=== PATIENT | male | born 1940 | race Caucasian/White ===

== ENCOUNTER 2016-10-31 11:56 | Inpatient (IN) | payer MEDICARE, OTHER ==
[~2016-10-31] VITALS: Ht 180.3 cm; Wt 91.5 kg
[2016-10-31] VITALS (8 sets, daily range): BP systolic 146–212; BP diastolic 67–100; PULSE 60–78; RESP 16–28; TEMP 98–98.2; O2SAT 95–98
[~2016-10-31 11:56] MED LIST: CYCL5TAB PO; NAPR500 PO; PHEN30TA32
[2016-10-31] MEDS ORDERED: PHENO60 PO (12:23)
--- NOTE | 2016-10-31 12:33 | PD ---
HPI Chief Complaint: Fall Time Seen by Provider: 12:28 Travel History International Travel<30 days: No Contact w/Intl Traveler<30days: No Traveled to known affect area: No History of Present Illness HPI This is a 75-year-old male who presents the emergency department having had a mechanical fall in a gas station 4 days ago hitting his head and face and injuring his left wrist. Patient reports persistent moderate severity pain in his left face, constant, worse with opening his jaw, associated with a significant amount of bruising around his left eye and his left lip. Patient also sustained an injury to his left wrist and has moderate severity pain, worse with trying to close troponin bottles, constant. He says he tried to ice it for several days but it wasn't getting any better so he came to the emergency room. He is not on any blood thinners. PFSH Past Medical History Seizures: Yes Tetanus Vaccination: Unknown Influenza Vaccination: No Social History Alcohol Use: No Tobacco Use: No Substance Use: No Allergies-Medications (Allergen,Severity, Reaction): Coded Allergies: No Known Allergies (Unverified , 10/31/16) Reported Meds & Prescriptions Reported Meds & Active Scripts Active Reported Phenobarbital 64.8 Mg Tab 64.8 Mg PO DAILY Review of Systems Except as stated in HPI: all other systems reviewed are Neg Physical Exam Narrative GENERAL:Well appearing, no acute distress SKIN: Old-appearing ecchymoses in the infraorbital region involving the left eye and around the left lower lip with some bruising on the left distal forearm HEAD: Atraumatic. Normocephalic. EYES: Pupils equal and round. No injection or drainage. ENT: Moist mucous membranes NECK: Trachea midline. CARDIOVASCULAR: Regular rate and rhythm. No murmur appreciated. Plus left radial pulse with normal capillary refill. RESPIRATORY: Clear to auscultation. Breath sounds equal bilaterally. GASTROINTESTINAL: Abdomen soft, non-tender, nondistended. MUSCULOSKELETAL: Tender to palpation along the ulnar aspect of the left distal forearm at the wrist, some pain with flexion and extension of the left wrist. NEUROLOGICAL: Awake and alert. No obvious cranial nerve deficits. Motor and sensation intact in the median, ulnar and radial distributions of the left hand. PSYCHIATRIC: Appropriate mood and affect; insight and judgment normal. Data Data Last Documented VS Vital Signs Date Time Temp Pulse Resp B/P Pulse Ox O2 Delivery O2 Flow Rate FiO2 10/31/16 15:36 61 18 212/98 96 Room Air 10/31/16 12:[address] Brain W/O Iv Contrast(Rout) (10/31/16 ) Ct Facial Bones W/O Iv Cont (10/31/16 ) Wrist, Complete ([id number]) (10/31/16 ) Mri Brain W&W/O Contrast (10/31/16 ) Complete Blood Count With Diff (10/31/16 13:48) Basic Metabolic Panel (Bmp) (10/31/16 13:48) Fiberglass Long Leg Cast Adult (10/31/16 ) Nicardipine Inj (Cardene Inj) (10/31/16 16:45) Admit Order (Ed Use Only) (10/31/16 17:13) Consult Neurosurgery (10/31/16 ) Labs Laboratory Tests Test 10/31/16 14:03 White Blood Count 7.8 TH/MM3 Red Blood Count 4.38 MIL/MM3 Hemoglobin 13.9 GM/DL Hematocrit 41.3 % Mean Corpuscular Volume 94.2 FL Mean Corpuscular Hemoglobin 31.7 PG Mean Corpuscular Hemoglobin 33.6 % Concent Red Cell Distribution Width 13.8 % Platelet Count 187 TH/MM3 Mean Platelet Volume 9.0 FL Neutrophils (%) (Auto) 54.4 % Lymphocytes (%) (Auto) 32.4 % Monocytes (%) (Auto) 8.6 % Eosinophils (%) (Auto) 4.3 % Basophils (%) (Auto) 0.3 % Neutrophils # (Auto) 4.3 TH/MM3 Lymphocytes # (Auto) 2.5 TH/MM3 Monocytes # (Auto) 0.7 TH/MM3 Eosinophils # (Auto) 0.3 TH/MM3 Basophils # (Auto) 0.0 TH/MM3 CBC Comment DIFF FINAL Differential Comment Sodium Level 142 MEQ/L Potassium Level 3.5 MEQ/L Chloride Level 105 MEQ/L Carbon Dioxide Level 27.6 MEQ/L Anion Gap 9 MEQ/L Blood Urea Nitrogen 10 MG/DL Creatinine 0.92 MG/DL Estimat Glomerular Filtration 80 ML/MIN Rate Random Glucose 106 MG/DL Calcium Level 8.7 MG/DL MDM Medical Decision Making Medical Screen Exam Complete: Yes Emergency Medical Condition: Yes Interpretation(s) Afebrile, no tachycardia, hypertensive No leukocytosis Electrolytes are reassuring CT of the head: Hyperdense lesion along the right temporal extra-axial space 3 x 1 cm MRI: Small mass that could be an epidural collection of blood or atypical meningioma Differential Diagnosis Subarachnoid hemorrhage, subdural hematoma, epidural hematoma, orbital floor fracture, wrist fracture Narrative Course This is a 75-year-old male who presents to the emergency department having had a closed head injury 4 days ago. He was placed on a monitor and an IV was established. CTs were obtained which demonstrate a 3 x 1 cm extra-axial collection, unclear meningioma versus blood. An MRI was obtained which is not definitive but does appear to involve hemorrhage. Dr. Loyola recommended transfer to ICU and neurosurgery involvement in the case that this is a contained epidural hematoma. Patient was quite hypertensive. He was started on nicardipine with a systolic blood pressure of 160. Otherwise CT of his face and x-ray the wrist was reassuring. Physician Communication Physician Communication Discussed with Dr. Toledo and Dr. Santoyo Diagnosis Primary Impression: Intracranial hemorrhage Admitting Information Admitting Physician Requests: Admit Amber Hickey MD Oct 31, 2016 12:33
--- NOTE | 2016-10-31 13:02 | RADHPO ---
EXAM DATE/TIME: 10/31/2016 12:36 [facility] COMPARISON: No previous studies available for comparison. INDICATIONS : Fall, left wrist pain and bruising. MEDICAL HISTORY : None. SURGICAL HISTORY : None. ENCOUNTER: Initial ACUITY: 1 week PAIN SCORE: 5/10 LOCATION: Left lateral wrist FINDINGS: There is soft tissue swelling on the medial side of the wrist. Bone density is normal. Alignment is anatomic. Fracture is not appreciated. CONCLUSION: Soft tissue without fracture. Francisco Loyola MD FACR on October 31, 2016 at 12:58 Board Certified Radiologist. This report was verified electronically.
--- NOTE | 2016-10-31 13:40 | RADHPO ---
EXAM DATE/TIME: 10/31/2016 13:07 [facility] COMPARISON: No previous studies available for comparison. INDICATIONS : Tripped and fell on face. RADIATION DOSE: 54.38 CTDIvol (mGy) MEDICAL HISTORY : Seizures. SURGICAL HISTORY : Orthopedic surgery. ENCOUNTER: Initial ACUITY: 4 - 6 days PAIN SCALE: 3/10 LOCATION: cranial TECHNIQUE: Multiple contiguous axial images were obtained of the head. Using automated exposure control and adj ustment of the mA and/or kV according to patient size, radiation dose was kept as low as reasonably a chievable to obtain optimal diagnostic quality images. FINDINGS: CEREBRUM: A 2.9 x 1.1 cm hyperdense mass is seen within the extra-axial space right temporal lobe likely mening ioma versus less likely extra-axial hemorrhage. The ventricles are normal for age. No evidence of mi dline shift, mass lesion or acute infarction. POSTERIOR FOSSA: The cerebellum and brainstem are intact. The 4th ventricle is midline. The cerebellopontine angle i s unremarkable. EXTRACRANIAL: The visualized portion of the orbits is intact. SKULL: The calvaria is intact. No evidence of skull fracture. CONCLUSION: 1. Hyperdense lesion along the right temporal extra-axial space measuring 2.9 x 1.1 cm, could be meni ngioma versus less likely extra-axial hemorrhage. Contrasted MRI recommended for confirmation. 2. Otherwise unremarkable CT brain. Josue Crews MD on October 31, 2016 at 13:26 Board Certified Radiologist. This report was verified electronically.
--- NOTE | 2016-10-31 13:42 | RADHPO ---
EXAM DATE/TIME: 10/31/2016 13:07 [facility] COMPARISON: No previous studies available for comparison. INDICATIONS : Tripped and fell on face. Left sided facial pain. RADIATION DOSE: 34.93 CTDIvol (mGy) MEDICAL HISTORY : Seizures. SURGICAL HISTORY : Orthopedic surgery. ENCOUNTER: Initial ACUITY: 4 - 6 days PAIN SCORE: 3/10 LOCATION: Left facial TECHNIQUE: Volumetric scanning of the facial bones was performed. Using automated exposure control and adjustme nt of the mA and/or kV according to patient size, radiation dose was kept as low as reasonably achiev able to obtain optimal diagnostic quality images. FINDINGS: ORBITS: The orbital and infraorbital osseous structures are intact. The retroconal structures have a normal configuration. No radiopaque foreign bodies are seen. NASAL BONE: The nasal bone and maxillary spine are intact ZYGOMATIC ARCHES: Symmetric without evidence of fracture. SINUSES: The maxillary, ethmoid and frontal sinuses are intact. No air-fluid levels seen. NASAL CAVITY: The nasal septum is intact and midline. The lacrimal ducts are intact. SOFT TISSUES: No radiopaque foreign bodies seen. Left facial soft-tissue swelling is seen. INTRACRANIAL: No intracranial air seen. CRIBIFORM PLATE: Grossly intact. CONCLUSION: 1. No facial fractures. 2. Right sided extra axial hyperdense lesion likely meningioma. 3. Left sided facial soft tissue swelling. Josue Crews MD on October 31, 2016 at 13:39 Board Certified Radiologist. This report was verified electronically.
[2016-10-31] MEDS ORDERED: GADODIAMIDE PF 287 MG/ML 20 ML VIAL (for RAD MRI) IV ONE (14:00)
[2016-10-31 14:19] LABS: AUTOMATED NEUTROPHIL # 4.3 TH/MM3 (1.8-7.7); BASOPHIL % 0.3 % (0.0-2.0); EOSINOPHIL # 0.3 TH/MM3 (0-0.4); EOSINOPHIL % 4.3 % (0.0-4.0); HEMATOCRIT 41.3 % (39.0-51.0); HEMO FLAGS DIFF FINAL; LYMPH % 32.4 % (9.0-44.0); LYMPHOCYTE # 2.5 TH/MM3 (1.0-4.8); MEAN CELL VOLUME 94.2 FL (80.0-100.0); MEAN CORPUSCULAR HEMOGLOBIN 31.7 PG (27.0-34.0); MEAN CORPUSCULAR HGB CONC 33.6 % (32.0-36.0); MONO % 8.6 % (0.0-8.0); NEUT % 54.4 % (16.0-70.0); PLATELET COUNT 187 TH/MM3 (150-450); RED BLOOD COUNT 4.38 MIL/MM3 (4.50-5.90); RED CELL DISTRIBUTION WIDTH 13.8 % (11.6-17.2); WHITE BLOOD COUNT 7.8 TH/MM3 (4.0-11.0)
[2016-10-31 14:26] LABS: POTASSIUM 3.5 MEQ/L (3.5-5.1)
[2016-10-31 14:29] LABS: BICARBONATE 27.6 MEQ/L (21.0-32.0)
--- NOTE | 2016-10-31 16:33 | RADHPO ---
EXAM DATE/TIME: 10/31/2016 15:24 [facility] COMPARISON: CT FACIAL BONES W/O CONTRAST, October 31, 2016, 13:07. CT BRAIN W/O CONTRAS T, October 31, 2016, 13:07. INDICATIONS : Mass. Patient fell and hit head. CONTRAST: 18 cc Omniscan (gadodiamide) IV MEDICAL HISTORY : None. SURGICAL HISTORY : Total knee replacement, left. ENCOUNTER: Subsequent ACUITY: 4-6 days PAIN SCORE: 3/10 LOCATION: Cranial TECHNIQUE: Multiplanar, multisequence MRI of the brain was performed both prior to and following the administration of paramagnetic contrast. FINDINGS: There is a small extraaxial mass of mixed intensity measuring 1.2 cm x 2.8 cm. This do es show minimal inhomogeneous enhancement. This has the appearance of blood products on the gradient echo acquisitions and does show minimal dural enhancement. There is probably a small epidural colle ction of blood on the opposite side of the trauma. This could be an atypical meningioma that has hem orrhaged. Ventricular size is appropriate. The left hemisphere is unremarkable. Orbits and paranasal sinuses appear normal. Posterior fossa is unremarkable. CONCLUSION: 1. Small mass as described above on the right that could be an epidural collection of blood or atypic al meningioma. 2. Findings have been discussed with Dr. Hickey on today's date. Francisco Loyola MD FACR on October 31, 2016 at 15:59 Board Certified Radiologist. This report was verified electronically.
[2016-10-31] MEDS ORDERED: niCARdipine INJ 25 MG in SODIUM CHLOR 0.9% 250 ML INJ 250 ML IV ONE (16:45)
[2016-10-31] MEDS ORDERED: SODIUM CHLOR 0.9% 1000 ML INJ 1,000 ML IV SCH (17:24)
[2016-10-31] MEDS ORDERED: MAGNESIUM OXIDE 400 MG TAB PO PRN (17:30)
[2016-10-31] MEDS ORDERED: SODIUM PHOSPHATE INJ 30 MMOL in SODIUM CHLOR 0.9% 250 ML INJ 240 ML IV PRN (17:30)
[2016-10-31] MEDS ORDERED: POTASSIUM PHOSPHATE MONOBASIC 500 MG TAB PO PRN (17:30)
[2016-10-31] MEDS ORDERED: ONDANSETRON HCL 4 MG/2 ML VIAL IV PRN (17:30)
[2016-10-31] MEDS ORDERED: POTASSIUM PHOSPHATE MONOBASIC 500 MG TAB PO/TUBE PRN (17:30)
[2016-10-31] MEDS ORDERED: DEXTROSE 50% IN WATER 50 ML VIAL(D50) IV PUSH PRN (17:30)
[2016-10-31] MEDS ORDERED: RESP: ALBUTEROL 2.5 MG/IPRATROPIUM 0.5 MG NEB (PRN) INH (17:30)
[2016-10-31] MEDS ORDERED: POTASSIUM CL 40 MEQ/30 ML LIQ UDC PO/TUBE PRN ×2 (17:30)
[2016-10-31] MEDS ORDERED: MAGNESIUM SULFATE INJ 2 GM in SODIUM CHLORIDE 0.9% INJ 96 ML IV PRN (17:30)
[2016-10-31] MEDS ORDERED: POTASSIUM CHLOR 20 MEQ PREMIX 100 ML IV PRN ×2 (17:30)
[2016-10-31] MEDS ORDERED: MISCELLANEOUS NURSING INFORMATION XX SCH (17:30)
[2016-10-31] MEDS ORDERED: CHLORHEXIDINE GLUCONATE 2 % 1 PACK (2 CLOTHS) TOP PRN (17:30)
[2016-10-31] MEDS ORDERED: POTASSIUM PHOSPHATE INJ 30 MMOL in SODIUM CHLOR 0.9% 250 ML INJ 250 ML IV PRN (17:30)
[2016-10-31] MEDS ORDERED: MAGNESIUM SULFATE INJ 4 GM in SODIUM CHLORIDE 0.9% INJ 92 ML IV PRN (17:30)
[2016-10-31] MEDS ORDERED: POTASSIUM CHLOR 40 MEQ PREMIX 100 ML IV PRN ×2 (17:30)
[2016-10-31] MEDS ORDERED: SODIUM CHLORIDE 0.9% FLUSH 5 ML FLUSH IV FLUSH PRN (17:30)
[2016-10-31] MEDS: INSULIN NovoLIN REGULAR SUPPLEMENTAL SCALE SQ SCH (17:51)
[2016-10-31 18:27] LABS: APTT (PATIENT) 26.9 SEC (24.3-30.1); PROTHROMBIN TIME - PATIENT 10.8 SEC (9.8-11.6)
[2016-10-31] MEDS: SODIUM CHLORIDE 0.9% FLUSH 5 ML FLUSH IV FLUSH SCH (21:00)
[2016-10-31] MEDS: niCARdipine 25 MG/NS 250 ML Vial2Bag or IV room IV SCH ×2 (22:43)
--- NOTE | 2016-10-31 22:55 | HHI.HP ---
[facility] Service Critical Care Medicine Primary Care Physician No Primary Care Physician Admission Diagnosis intracranial hemorrhage Diagnosis: Travel History International Travel<30 Days: No Contact w/Intl Traveler <30 Da: No Traveled to Known Affected Are: No History of Present Illness 75-year-old male who presents after having had a mechanical fall in a gas station 4 days ago hitting his head and face and injuring his left wrist. He complains off persistent moderate severity pain in his left face, constant, worse with opening his jaw, associated with a significant amount of bruising around his left eye and his left lip. CT of the head and MRI revealed small atypical meningioma. He's been admitted to [facility] with a neurosurgical consultation. Review of Systems Constitutional: DENIES: Diaphoretic episodes, Fatigue, Fever, Weight gain, Weight loss, Chills, Dizziness, Change in appetite, Night Sweats Endocrine: DENIES: Heat/cold intolerance, Polydipsia, Polyuria, Polyphagia Eyes: DENIES: Blurred vision, Diplopia, Eye inflammation, Eye pain, Vision loss , Photosensitivity, Double Vision Ears, nose, mouth, throat: DENIES: Tinnitus, Hearing loss, Vertigo, Nasal discharge, Oral lesions, Throat pain, Hoarseness, Ear Pain, Running Nose, Epistaxis, Sinus Pain, Toothache, Odynophagia Respiratory: DENIES: Apneas, Cough, Snoring, Wheezing, Hemoptysis, Sputum production, Shortness of breath Cardiovascular: DENIES: Chest pain, Palpitations, Syncope, Dyspnea on Exertion , PND, Lower Extremity Edema, Orthopnea, Claudication Gastrointestinal: DENIES: Abdominal pain, Black stools, Bloody stools, Constipation, Diarrhea, Nausea, Vomiting, Difficulty Swallowing, Anorexia Genitourinary: DENIES: Sexual dysfunction, Urinary frequency, Urinary incontinence, Urgency, Hematuria, Dysuria, Nocturia, Penile Discharge, Testicular Pain, Testicular Swelling Musculoskeletal: DENIES: Joint pain, Muscle aches, Stiffness, Joint Swelling, Back pain, Neck pain Integumentary: DENIES: Abnormal pigmentation, Nail changes, Pruritus, Rash Hematologic/lymphatic: DENIES: Bruising, Lymphadenopathy Immunologic/allergic: DENIES: Eczema, Urticaria Neurologic: COMPLAINS OF: Headache, DENIES: Abnormal gait, Localized weakness , Paresthesias, Seizures, Speech Problems, Tremor, Poor Balance Psychiatric: DENIES: Anxiety, Confusion, Mood changes, Depression, Hallucinations, Agitation, Suicidal Ideation, Homicidal Ideation, Delusions Past Family Social History Allergies: Coded Allergies: No Known Allergies (Unverified , 10/31/16) Past Medical History Seizure disorder Past Surgical History None Reported Medications Reported Meds & Active Scripts Active Reported Phenobarbital 64.8 Mg Tab 64.8 Mg PO HS Active Ordered Medications Current Medications Medications (Trade) Dose Ordered Sig/Lauren Route PRN Reason Start Time Stop Time Status Last Admin Dose Admin Magnesium Oxide 800 mg 800 mg UNSCH PRN PO For Magnesium 1.2 - 1.6 mg/dL 10/31/16 17:30 Magnesium Sulfate 4 gm/Sodium Chloride 100 ml @ 50 mls/hr UNSCH PRN IV For Magnesium 0.9 - 1.1 mg/dL 10/31/16 17:30 Magnesium Sulfate 2 gm/Sodium Chloride 100 ml @ 50 mls/hr UNSCH PRN IV For Magnesium 1.2 - 1.6 mg/dL 10/31/16 17:30 Potassium Chloride 100 ml @ 50 mls/hr Q2H PRN IV For Potassium 2.8 - 3.2 mEq/L 10/31/16 17:30 Potassium Chloride 100 ml @ 50 mls/hr Q2H PRN IV For Potassium 3.3 - 3.5 mEq/L 10/31/16 17:30 Potassium Chloride 100 ml @ 50 mls/hr Q2H PRN IV For Potassium 2.8 - 3.2 mEq/L 10/31/16 17:30 Potassium Chloride (KCl 40 Meq Premix Inj) 100 ml @ 25 mls/hr UNSCH PRN IV For Potassium 3.3 - 3.5 mEq/L 10/31/16 17:30 Potassium Chloride (KCl 40 Meq/30 ml Liq) 40 meq UNSCH PRN PO/TUBE For Potassium 3.3 - 3.5 mEq/L 10/31/16 17:30 Potassium Chloride (KCl 40 Meq/30 ml Liq) 40 meq UNSCH PRN PO/TUBE SEE LABEL COMMENTS 10/31/16 17:30 Potassium Phosphate (K-Phos) 2,000 mg Q4H PRN PO For Phosphorus < 2.5 mg/dL 10/31/16 17:30 Potassium Phosphate 2000 mg 2,000 mg UNSCH PRN PO/TUBE SEE LABEL COMMENTS 10/31/16 17:30 Potassium Phosphate 30 mmol/ Sodium Chloride 260 ml @ 42 mls/hr UNSCH PRN IV SEE LABEL COMMENTS 10/31/16 17:30 Sodium Phosphate/ Sodium Chloride (Sodium Phosphate Inj/NS 250 ml Inj) 250 ml @ 42 mls/hr UNSCH PRN IV For Phosphorus < 2.5 mg/dL 10/31/16 17:30 Dextrose (D50w (Vial) Inj) 25 ml UNSCH PRN IV PUSH HYPOGLYCEMIA-SEE COMMENTS 10/31/16 17:30 Insulin Human Regular 1 1 Q6HR SQ 10/31/16 18:00 Sodium Chloride (NS 1000 ml Inj) 1,000 ml @ 84 mls/hr [id number] IV 10/31/16 17:24 10/31/16 18:04 IV Flush (NS Flush) 2 ml UNSCH PRN IV FLUSH FLUSH AFTER USING IV ACCESS 10/31/16 17:30 IV Flush (NS Flush) 2 ml BID IV FLUSH 10/31/16 21:00 Pantoprazole Sodium (Protonix Inj) 40 mg DAILY IV 11/01/16 09:00 Ondansetron HCl (Zofran Inj) 4 mg Q6H PRN IV NAUSEA OR VOMITING 10/31/16 17:30 Miscellaneous Information 1 [id number] XX 10/31/16 17:30 Chlorhexidine Gluconate (Chlorhexidine 2% Cloth) 3 pack Taper DAILY@04 TOP 11/01/16 04:00 10/28/17 03:59 Chlorhexidine Gluconate 3 pack 3 pack UNSCH PRN TOP HYGIENIC CARE 10/31/16 17:30 Nicardipine HCl/ Sodium Chloride (Cardene Inj/NS 250 ml Inj) 260 ml @ 0 mls/hr TITRATE IV 10/31/16 22:30 11/01/16 02:15 Phenobarbital (PHENobarbital) 64.8 mg HS PO 10/31/16 23:30 11/01/16 01:12 Family History Noncontributory Social History Negative 3 Physical Exam Vital Signs Vital Signs Date Time Temp Pulse Resp B/P Pulse Ox O2 Delivery O2 Flow Rate FiO2 10/31/16 18:35 75 18 163/67 98 Room Air 10/31/16 18:08 68 18 173/78 98 Room Air 10/31/16 17:44 72 18 193/75 98 Room Air 10/31/16 17:18 60 18 212/100 96 Room Air 10/31/16 15:36 61 18 212/98 96 Room Air 10/31/16 12:14 98.0 67 16 172/85 97 Physical Exam GENERAL: Well-nourished, well-developed patient. SKIN: Warm and dry. HEAD: Normocephalic. EYES: No scleral icterus. No injection or drainage. NECK: Supple, trachea midline. No JVD or lymphadenopathy. CARDIOVASCULAR: Regular rate and rhythm without murmurs, gallops, or rubs. RESPIRATORY: Breath sounds equal bilaterally. No accessory muscle use. GASTROINTESTINAL: Abdomen soft, non-tender, nondistended. MUSCULOSKELETAL: No cyanosis, or edema. BACK: Nontender without obvious deformity. Laboratory Laboratory Tests Test 10/31/16 10/31/16 14:03 19:37 White Blood Count 7.8 Red Blood Count 4.38 Hemoglobin 13.9 Hematocrit 41.3 Mean Corpuscular Volume 94.2 Mean Corpuscular Hemoglobin 31.7 Mean Corpuscular Hemoglobin 33.6 Concent Red Cell Distribution Width 13.8 Platelet Count 187 Mean Platelet Volume 9.0 Neutrophils (%) (Auto) 54.4 Lymphocytes (%) (Auto) 32.4 Monocytes (%) (Auto) 8.6 Eosinophils (%) (Auto) 4.3 Basophils (%) (Auto) 0.3 Neutrophils # (Auto) 4.3 Lymphocytes # (Auto) 2.5 Monocytes # (Auto) 0.7 Eosinophils # (Auto) 0.3 Basophils # (Auto) 0.0 CBC Comment DIFF FINAL Differential Comment Prothrombin Time 10.8 Prothromb Time International 1.0 Ratio Activated Partial 26.9 Thromboplast Time Sodium Level 142 Potassium Level 3.5 Chloride Level 105 Carbon Dioxide Level 27.6 Anion Gap 9 Blood Urea Nitrogen 10 Creatinine 0.92 Estimat Glomerular Filtration 80 Rate Random Glucose 106 Calcium Level 8.7 Nasal Screen MRSA (PCR) NEGATIVE Result Diagram: 10/31/16 1403 10/31/16 1403 Assessment and Plan Assessment and Plan Seizure disorder - Continue home dose of phenobarbital Headache - Tylenol - Supportive care Meningioma - Evaluation per neurosurgery DVT GI prophylaxis - Early aggressive mobilization, regular diet Critical Care: The total critical care time was 35 minutes. Time to perform other separately billable procedures was not included in the critical care time. Matias Calixto MD Oct 31, 2016 22:55
[2016-11-01] VITALS (13 sets, daily range): BP systolic 124–160; BP diastolic 56–70; PULSE 63–85; RESP 14–31; TEMP 98.1–98.8; O2SAT 93–99
[2016-11-01] MEDS: PHENobarbital 32.4 MG TAB PO SCH ×2 (01:12→21:18)
[2016-11-01] MEDS: niCARdipine 25 MG/NS 250 ML Vial2Bag or IV room IV SCH ×6 (02:15→07:30)
--- NOTE | 2016-11-01 04:23 | RADRPT ---
EXAM DATE/TIME: 11/01/2016 02:54 [facility] COMPARISON: No previous studies available for comparison. INDICATIONS : Follow up hemorrhage. RADIATION DOSE: 41.56 CTDIvol (mGy) MEDICAL HISTORY : Seizures. SURGICAL HISTORY : None. ENCOUNTER: Subsequent ACUITY: 1 day PAIN SCALE: 4/10 LOCATION: cranial TECHNIQUE: Multiple contiguous axial images were obtained of the head. Using automated exposure control and adj ustment of the mA and/or kV according to patient size, radiation dose was kept as low as reasonably a chievable to obtain optimal diagnostic quality images. FINDINGS: Comparison October 31. Again seen is extra-axial density overlying the right sylvian fissure, probab ly a small subdural hematoma. No significant change since prior exam. Probable trace subdural hemorrh age in the posterior interhemispheric fissure as well. No significant mass effect or midline shift. N o hydrocephalus. CONCLUSION: 1. Stable presumed small subdural hematoma overlying the right sylvian fissure. Trace subdural hemorr farzad in the posterior right interhemispheric fissure. James Avila MD on November 01, 2016 at 4:16 Board Certified Radiologist. This report was verified electronically.
[2016-11-01] MEDS: CHLORHEXIDINE GLUCONATE 2 % 1 PACK (2 CLOTHS) TOP SCH (04:28)
[2016-11-01 04:49] LABS: HEMATOCRIT 38.6 % (39.0-51.0); MEAN CELL VOLUME 92.8 FL (80.0-100.0); MEAN CORPUSCULAR HEMOGLOBIN 31.9 PG (27.0-34.0); MEAN CORPUSCULAR HGB CONC 34.3 % (32.0-36.0); PLATELET COUNT 158 TH/MM3 (150-450); RED BLOOD COUNT 4.16 MIL/MM3 (4.50-5.90); RED CELL DISTRIBUTION WIDTH 13.9 % (11.6-17.2); REVIEW FLAG FINAL; WHITE BLOOD COUNT 6.8 TH/MM3 (4.0-11.0)
[2016-11-01 05:15] LABS: BICARBONATE 26.1 MEQ/L (21.0-32.0); POTASSIUM 3.3 MEQ/L (3.5-5.1)
[2016-11-01] MEDS: INSULIN NovoLIN REGULAR SUPPLEMENTAL SCALE SQ SCH ×4 (05:23→18:00)
[2016-11-01] MEDS: PANTOPRAZOLE SODIUM 40 MG VIAL IV SCH (09:00)
[2016-11-01] MEDS: SODIUM CHLORIDE 0.9% FLUSH 5 ML FLUSH IV FLUSH SCH ×2 (09:00→21:18)
[2016-11-01] MEDS ORDERED: niCARdipine INJ 50 MG in SODIUM CHLORID 0.9% 500 ML INJ 480 ML IV SCH (10:26)
[2016-11-01] MEDS ORDERED: AMLO10 PO (11:54)
[2016-11-01] MEDS ORDERED: NORC5TAB PO (11:54)
--- NOTE | 2016-11-01 14:05 | HHI.PR ---
Subjective Remarks f/u for intracranial bleed due to trauma. patient has no complaints. He denied any HICKS, N/V, visual changes and neurological deficit. patient asking to go home. d/w nurse patient still on Cardene gtt. Objective Vitals Vital Signs Date Time Temp Pulse Resp B/P Pulse Ox O2 Delivery O2 Flow Rate FiO2 11/01/16 06:00 78 11/01/16 04:00 84 23 149/65 93 11/01/16 04:00 84 11/01/16 02:00 85 11/01/16 00:00 80 14 153/66 94 11/01/16 00:00 80 10/31/16 22:00 78 10/31/16 20:00 Room Air 95 10/31/16 20:00 98.2 76 28 146/68 95 10/31/16 20:00 68 10/31/16 18:35 75 18 163/67 98 Room Air 10/31/16 18:08 68 18 173/78 98 Room Air 10/31/16 17:44 72 18 193/75 98 Room Air 10/31/16 17:18 60 18 212/100 96 Room Air 10/31/16 15:36 61 18 212/98 96 Room Air I/O 10/31/16 10/31/16 10/31/16 11/01/16 11/01/16 11/01/16 07:00 15:00 23:00 07:00 15:00 23:00 Intake Total 307 ml 2028 ml Output Total 500 ml 925 ml Balance -193 ml 1103 ml Intake Oral 0 ml 920 ml IV Total 307 ml 1108 ml Output Urine Total 500 ml 925 ml # Voids 4 # Bowel Movements 0 0 Result Diagram: 11/01/16 0409 11/01/16 0409 Imaging Last Impressions Head CT 11/01/16 0600 Signed Impressions: Service Date/Time: Tuesday, November 01, 2016 02:54 - CONCLUSION: 1. Stable presumed small subdural hematoma overlying the right sylvian fissure. Trace subdural hemorrhage in the posterior right interhemispheric fissure. James Avila MD Wrist X-Ray 10/31/16 0000 Signed Impressions: Service Date/Time: Monday, October 31, 2016 12:36 - CONCLUSION: Soft tissue without fracture. Francisco Loyola MD FACR Maxillofacial CT 10/31/16 0000 Signed Impressions: Service Date/Time: Monday, October 31, 2016 13:07 - CONCLUSION: 1. No facial fractures. 2. Right sided extra axial hyperdense lesion likely meningioma. 3. Left sided facial soft tissue swelling. Josue Crwes MD Brain MRI 10/31/16 0000 Signed Impressions: Service Date/Time: Monday, October 31, 2016 15:24 - CONCLUSION: 1. Small mass as described above on the right that could be an epidural collection of blood or atypical meningioma. 2. Findings have been discussed with Dr. Hickey on today's date. Francisco Loyola MD FACR Objective Remarks Gen NAD HEENT: PERLLA, EOMI intact. CV RRR. no r/m/g Resp CTA B/L Neuro: AAO X3. CN 2-12 intact. motor and sensory grossly intact. Medications and IVs Current Medications Nicardipine HCl/ Sodium Chloride (Cardene Inj/NS 250 ml Inj) 260 ml @ 0 mls/hr TITRATE ONCE IV Last administered on 10/31/16t 17:18; Start 10/31/16 at 16:45 ; Stop 10/31/16 at 16:46; Status DC Magnesium Oxide 800 mg 800 mg UNSCH PRN PO For Magnesium 1.2 - 1.6 mg/dL; Start 10/31/16 at 17:30 Magnesium Sulfate 4 gm/Sodium Chloride 100 ml @ 50 mls/hr UNSCH PRN IV For Magnesium 0.9 - 1.1 mg/dL; Start 10/31/16 at 17:30 Magnesium Sulfate 2 gm/Sodium Chloride 100 ml @ 50 mls/hr UNSCH PRN IV For Magnesium 1.2 - 1.6 mg/dL; Start 10/31/16 at 17:30 Potassium Chloride 100 ml @ 50 mls/hr Q2H PRN IV For Potassium 2.8 - 3.2 mEq/L ; Start 10/31/16 at 17:30 Potassium Chloride 100 ml @ 50 mls/hr Q2H PRN IV For Potassium 3.3 - 3.5 mEq/L ; Start 10/31/16 at 17:30 Potassium Chloride 100 ml @ 50 mls/hr Q2H PRN IV For Potassium 2.8 - 3.2 mEq/L ; Start 10/31/16 at 17:30 Potassium Chloride (KCl 40 Meq Premix Inj) 100 ml @ 25 mls/hr UNSCH PRN IV For Potassium 3.3 - 3.5 mEq/L; Start 10/31/16 at 17:30 Potassium Chloride (KCl 40 Meq/30 ml Liq) 40 meq UNSCH PRN PO/TUBE For Potassium 3.3 - 3.5 mEq/L Last administered on 11/01/16 12:31; Start 10/31/16 at 17:30 Potassium Chloride (KCl 40 Meq/30 ml Liq) 40 meq UNSCH PRN PO/TUBE SEE LABEL COMMENTS; Start 10/31/16 at 17:30 Potassium Phosphate (K-Phos) 2,000 mg Q4H PRN PO For Phosphorus < 2.5 mg/dL; Start 10/31/16 at 17:30 Potassium Phosphate 2000 mg 2,000 mg UNSCH PRN PO/TUBE SEE LABEL COMMENTS; Start 10/31/16 at 17:30 Potassium Phosphate 30 mmol/ Sodium Chloride 260 ml @ 42 mls/hr UNSCH PRN IV SEE LABEL COMMENTS; Start 10/31/16 at 17:30 Sodium Phosphate/ Sodium Chloride (Sodium Phosphate Inj/NS 250 ml Inj) 250 ml @ 42 mls/hr UNSCH PRN IV For Phosphorus < 2.5 mg/dL; Start 10/31/16 at 17:30 Dextrose (D50w (Vial) Inj) 25 ml UNSCH PRN IV PUSH HYPOGLYCEMIA-SEE COMMENTS; Start 10/31/16 at 17:30 Insulin Human Regular 1 1 Q6HR SQ Last administered on 11/01/16 12:33; Start 10/31/16 at 18:00 Sodium Chloride (NS 1000 ml Inj) 1,000 ml @ 84 mls/hr [id number] IV Last administered on 10/31/16 18:04; Start 10/31/16 at 17:24 IV Flush (NS Flush) 2 ml UNSCH PRN IV FLUSH FLUSH AFTER USING IV ACCESS; Start 10/31/16 at 17:30 IV Flush (NS Flush) 2 ml BID IV FLUSH Last administered on 11/01/16 09:00; Start 10/31/16 at 21:00 Pantoprazole Sodium (Protonix Inj) 40 mg DAILY IV Last administered on 09:00; Start 11/01/16 at 09:00 Ondansetron HCl (Zofran Inj) 4 mg Q6H PRN IV NAUSEA OR VOMITING; Start at 17:30 Albuterol/ Ipratropium (Duoneb Neb) 1 ampule Q2HR NEB PRN INH WHEEZING; Start 10/31/16 at 17:30 Miscellaneous Information 1 Q361D XX ; Start 10/31/16 at 17:30 Chlorhexidine Gluconate (Chlorhexidine 2% Cloth) 3 pack Taper DAILY@04 TOP Last administered on 11/01/16 04:28; Start 11/01/16 at 04:00; Stop 10/28/17 at 03:59 Chlorhexidine Gluconate 3 pack 3 pack UNSCH PRN TOP HYGIENIC CARE; Start at 17:30 Nicardipine HCl/ Sodium Chloride (Cardene Inj/NS 250 ml Inj) 260 ml @ 0 mls/hr TITRATE IV Last administered on 11/01/16 07:30; Start 10/31/16 at 22:30; Stop 11/01/16 at 10:26; Status DC Phenobarbital (PHENobarbital) 64.8 mg HS PO Last administered on 11/01/16 01: 12; Start 10/31/16 at 23:30 Gadodiamide 18 ml 18 ml STK-MED ONCE IV ; Start 10/31/16 at 14:00; Stop at 07:22; Status DC Nicardipine HCl/ Sodium Chloride (Cardene Inj/NS 500 ml Inj) 500 ml @ 0 mls/hr TITRATE IV ; Start 11/01/16 at 10:26 Amlodipine Besylate (Norvasc) 10 mg DAILY PO ; Start 11/02/16 at 09:00 Amlodipine Besylate (Norvasc) 10 mg ONCE ONCE PO Last administered on 12:32; Start 11/01/16 at 11:00; Stop 11/01/16 at 11:01; Status DC A/P Assessment and Plan Intracranial bleed -CT scan today showed small subdural hematoma overlying the right sylvian fissure. Trace subdural hemorrhage in the posterior right interhemispheric fissure. -MRI suggest small collection of blood vs meniogoma. -NSG consulted pending note. -on cardene gtt. He got amlodipine today. will try to wean off gtt. uncontrolled HTN -maybe due to pain since patient stated no hx of HTN. -need to control BP due to bleed. -see treatment as above. DVT prophylaxis -SCD. chemoprophylaxis contraindicated due to bleed. Discharge Planning Dispo: once BP is controlled and off Cardene gtt can d/c home. Rivka Armas MD Nov 01, 2016 14:05
[2016-11-01] MEDS: hydrALAZINE HCL 20 MG/ML VIAL IV PUSH PRN (22:41)
[2016-11-02] VITALS (12 sets, daily range): BP systolic 144–166; BP diastolic 64–103; PULSE 72–88; RESP 16–24; TEMP 97.3–98.6; O2SAT 93–96
[2016-11-02] MEDS: hydrALAZINE HCL 20 MG/ML VIAL IV PUSH PRN ×6 (00:39→20:16)
[2016-11-02] MEDS: CHLORHEXIDINE GLUCONATE 2 % 1 PACK (2 CLOTHS) TOP SCH (04:00)
[2016-11-02 04:15] LABS: HEMATOCRIT 38.1 % (39.0-51.0); MEAN CORPUSCULAR HEMOGLOBIN 31.7 PG (27.0-34.0); MEAN CORPUSCULAR HGB CONC 34.1 % (32.0-36.0); PLATELET COUNT 168 TH/MM3 (150-450); RED CELL DISTRIBUTION WIDTH 14.1 % (11.6-17.2); REVIEW FLAG FINAL; WHITE BLOOD COUNT 8.4 TH/MM3 (4.0-11.0)
[2016-11-02 04:31] LABS: BICARBONATE 24.5 MEQ/L (21.0-32.0); POTASSIUM 3.5 MEQ/L (3.5-5.1)
[2016-11-02] MEDS: INSULIN NovoLIN REGULAR SUPPLEMENTAL SCALE SQ SCH ×4 (06:00→23:33)
--- NOTE | 2016-11-02 08:25 | MB ---
cc: JESSICA HANSON M.D. DATE OF CONSULTATION 11/01/2016 REASON FOR CONSULTATION Traumatic brain injury. PRESENT ILLNESS A 75-year-old gentleman who five days ago and tripped and fell at a gas station over the hose on the concrete ground and struck the left side of his face, hand and shoulder. He denies any loss of consciousness. Subsequently he has had complaints of left wrist pain and left shoulder anterior chest wall pain and left-sided headaches and facial pain. He presented to [place] [facility] yesterday and workup undertaken included CT scan of the head which reveals a 3.5-cm in AP dimension x 1-cm thickness right temporal extra-axial hemorrhage without any significant midline shift. He has also had a subsequent MRI scan which again confirms this hemorrhage with no progression. Initially the radiologist felt that there could be a meningioma but this appears to be more characteristic of a hemorrhage. He was transferred to [facility] facility late last evening. He has been hypertensive and requiring Cardene drip to regulate his hypertension and relates this morning that overall his facial pain and left wrist pain and shoulder and chest wall pain has improved. He is requesting to be discharged home. He denies any double vision or any nausea or vomiting. Followup CT scan of the head obtained at this morning again reveals a stable small right temporal extra-axial hemorrhage. PAST MEDICAL HISTORY 1. Remote history of seizure disorder; he has been on phenobarbital for the past 40 years. 2. He is hypertensive now but denies any history of hypertension. MEDICATIONS Phenobarbital 64.8 mg q.h.s. ALLERGIES No known drug allergies. SOCIAL HISTORY He denies alcohol use, is a former smoker. He is single, resides in [place]. LABORATORY FINDINGS White blood cell count of 6.8, hemoglobin 13.3, platelet count 158. PT 10.8. INR 1.0. PTT 26.9. Sodium 140, potassium 3.3, BUN 9, creatinine 0.81, glucose 112. REVIEW OF SYSTEMS Complains of left-sided facial pain. Complains of left-sided shoulder and anterior chest wall pain. Complains of left wrist pain. Denies any nausea or vomiting. Denies any double vision or blurred vision. Denies any shortness of breath. Denies any neck or back pain. Denies any numbness or paresthesias in the upper or lower extremities. Denies any abdominal pain. No history of fevers or chills. No recent weight gain or weight loss. The history of easy bleeding or bruising. PHYSICAL EXAMINATION VITAL SIGNS: Temperature 98.2, pulse is 84, respiratory rate 23, blood pressure 149/65. Oxygen saturations 93% on room air. HEAD: He has left periorbital and facial ecchymosis. NECK: Supple. CHEST: Clear bilaterally. HEART: Regular rate and rhythm. Normal S1 and S2. ABDOMEN: Soft, nontender. EXTREMITIES: He has some tenderness and ecchymosis of the left wrist with good range of motion. No signs of edema or deformity. NEUROLOGIC: He is awake, alert. He is oriented x 3. Pupils are equal, reactive. Extraocular muscles are intact. Face is symmetric. Tongue is midline. He moves all four extremities with 5/5 strength. Negative Babinski. Speech is fluent. Light touch sensation is intact bilaterally. IMPRESSION 1. 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 This injury occurred about five days ago. 2. Unregulated hypertension on Cardene drip. 3. Left wrist sprain injury. 4. Remote history of seizure disorder. PLAN 1. Patient is stable from a neurosurgical standpoint. His diet and activity status can be increased as tolerated. 2. Also recommend switching him over to p.o. antihypertensive medications in order to enable weaning off the Cardene drip. 3. He will follow up in the clinic in two weeks with repeat CT scan of the head to ensure continued resolution of this extra-axial hemorrhage. 4. Continue with his phenobarbital for seizure prophylaxis along with Protonix for gastrointestinal stress ulcer prophylaxis and sequential compression devices for DVT prophylaxis until he is more ambulatory. 5. Also replace his potassium chloride for the mild hypokalemia. Discussed the findings with the patient and all his questions have been answered. MD ANNAMARIE Gibson/VIVI /10:53 AM /8:13 AM CRISTELA
[2016-11-02] MEDS: SODIUM CHLORIDE 0.9% FLUSH 5 ML FLUSH IV FLUSH SCH ×2 (08:39→20:09)
[2016-11-02] MEDS: PANTOPRAZOLE SODIUM 40 MG VIAL IV SCH (08:40)
--- NOTE | 2016-11-02 12:51 | HHI.PR ---
Subjective Remarks f/u for intracranial bleed and uncontrolled BP. Patient very anxious to go home. Denied any N/V, visual changes or HICKS. d/w nurse who stated SBP has been in 190s and he is requiring lots of PRN IV antihypertensive medication. Objective Vitals Vital Signs Date Time Temp Pulse Resp B/P Pulse Ox O2 Delivery O2 Flow Rate FiO2 11/02/16 10:00 83 11/02/16 08:00 98.0 81 18 166/70 93 11/02/16 08:00 81 11/02/16 07:00 Nasal Cannula 1.00 97 11/02/16 06:00 74 11/02/16 04:00 77 11/02/16 04:00 98.6 76 16 161/72 96 11/02/16 02:00 77 11/02/16 00:00 77 11/02/16 00:00 98.4 72 19 165/71 95 11/01/16 22:05 99 Nasal Cannula 1.00 11/01/16 22:00 68 11/01/16 21:00 Nasal Cannula 1.00 96 11/01/16 20:00 98.6 68 26 160/67 94 11/01/16 20:00 76 11/01/16 19:00 Room Air 93 11/01/16 18:00 65 11/01/16 16:00 63 11/01/16 16:00 98.6 63 20 156/67 93 11/01/16 14:00 64 I/O 11/01/16 11/01/16 11/01/16 11/02/16 11/02/16 11/02/16 07:00 15:00 23:00 07:00 15:00 23:00 Intake Total 2028 ml 1695 ml 480 ml 100 ml Output Total 925 ml 950 ml 450 ml 150 ml Balance 1103 ml 745 ml 30 ml -50 ml Intake Oral 920 ml 660 ml 480 ml 100 ml IV Total 1108 ml 1035 ml 0 ml 0 ml Output Urine Total 925 ml 950 ml 450 ml 150 ml # Voids 4 4 # Bowel Movements 0 0 0 0 Result Diagram: 11/02/1633411/02/16334 Objective Remarks Gen NAD HEENT: PERLLA, EOMI intact. CV RRR. no r/m/g Resp CTA B/L Neuro: AAO X3. CN 2-12 intact. motor and sensory grossly intact. Medications and IVs Current Medications Nicardipine HCl/ Sodium Chloride (Cardene Inj/NS 250 ml Inj) 260 ml @ 0 mls/hr TITRATE ONCE IV Last administered on 10/31/16t 17:18; Start 10/31/16 at 16:45 ; Stop 10/31/16 at 16:46; Status DC Magnesium Oxide 800 mg 800 mg UNSCH PRN PO For Magnesium 1.2 - 1.6 mg/dL; Start 10/31/16 at 17:30 Magnesium Sulfate 4 gm/Sodium Chloride 100 ml @ 50 mls/hr UNSCH PRN IV For Magnesium 0.9 - 1.1 mg/dL; Start 10/31/16 at 17:30 Magnesium Sulfate 2 gm/Sodium Chloride 100 ml @ 50 mls/hr UNSCH PRN IV For Magnesium 1.2 - 1.6 mg/dL; Start 10/31/16 at 17:30 Potassium Chloride 100 ml @ 50 mls/hr Q2H PRN IV For Potassium 2.8 - 3.2 mEq/L ; Start 10/31/16 at 17:30 Potassium Chloride 100 ml @ 50 mls/hr Q2H PRN IV For Potassium 3.3 - 3.5 mEq/L ; Start 10/31/16 at 17:30 Potassium Chloride 100 ml @ 50 mls/hr Q2H PRN IV For Potassium 2.8 - 3.2 mEq/L ; Start 10/31/16 at 17:30 Potassium Chloride (KCl 40 Meq Premix Inj) 100 ml @ 25 mls/hr UNSCH PRN IV For Potassium 3.3 - 3.5 mEq/L; Start 10/31/16 at 17:30 Potassium Chloride (KCl 40 Meq/30 ml Liq) 40 meq UNSCH PRN PO/TUBE For Potassium 3.3 - 3.5 mEq/L Last administered on 11/01/16t 12:31; Start 10/31/16 at 17:30 Potassium Chloride (KCl 40 Meq/30 ml Liq) 40 meq UNSCH PRN PO/TUBE SEE LABEL COMMENTS; Start 10/31/16 at 17:30 Potassium Phosphate (K-Phos) 2,000 mg Q4H PRN PO For Phosphorus < 2.5 mg/dL; Start 10/31/16 at 17:30 Potassium Phosphate 2000 mg 2,000 mg UNSCH PRN PO/TUBE SEE LABEL COMMENTS; Start 10/31/16 at 17:30 Potassium Phosphate 30 mmol/ Sodium Chloride 260 ml @ 42 mls/hr UNSCH PRN IV SEE LABEL COMMENTS; Start 10/31/16 at 17:30 Sodium Phosphate/ Sodium Chloride (Sodium Phosphate Inj/NS 250 ml Inj) 250 ml @ 42 mls/hr UNSCH PRN IV For Phosphorus < 2.5 mg/dL; Start 10/31/16 at 17:30 Dextrose (D50w (Vial) Inj) 25 ml UNSCH PRN IV PUSH HYPOGLYCEMIA-SEE COMMENTS; Start 10/31/16 at 17:30 Insulin Human Regular 1 1 Q6HR SQ Last administered on 11/01/16 12:33; Start 10/31/16 at 18:00 Sodium Chloride (NS 1000 ml Inj) 1,000 ml @ 84 mls/hr [id number] IV Last administered on 10/31/16 18:04; Start 10/31/16 at 17:24; Stop 11/01/16 at 16:54 ; Status DC IV Flush (NS Flush) 2 ml UNSCH PRN IV FLUSH FLUSH AFTER USING IV ACCESS; Start 10/31/16 at 17:30 IV Flush (NS Flush) 2 ml BID IV FLUSH Last administered on 11/02/16 08:39; Start 10/31/16 at 21:00 Pantoprazole Sodium (Protonix Inj) 40 mg DAILY IV Last administered on 08:40; Start 11/01/16 at 09:00 Ondansetron HCl (Zofran Inj) 4 mg Q6H PRN IV NAUSEA OR VOMITING; Start at 17:30 Albuterol/ Ipratropium (Duoneb Neb) 1 ampule Q2HR NEB PRN INH WHEEZING; Start 10/31/16 at 17:30 Miscellaneous Information 1 Q361D XX ; Start 10/31/16 at 17:30 Chlorhexidine Gluconate (Chlorhexidine 2% Cloth) 3 pack Taper DAILY@04 TOP Last administered on 11/01/16 04:28; Start 11/01/16 at 04:00; Stop 10/28/17 at 03:59 Chlorhexidine Gluconate 3 pack 3 pack UNSCH PRN TOP HYGIENIC CARE; Start at 17:30 Nicardipine HCl/ Sodium Chloride (Cardene Inj/NS 250 ml Inj) 260 ml @ 0 mls/hr TITRATE IV Last administered on 11/01/16 07:30; Start 10/31/16 at 22:30; Stop 11/01/16 at 10:26; Status DC Phenobarbital (PHENobarbital) 64.8 mg HS PO Last administered on 11/01/16 21: 18; Start 10/31/16 at 23:30 Gadodiamide 18 ml 18 ml STK-MED ONCE IV ; Start 10/31/16 at 14:00; Stop at 07:22; Status DC Nicardipine HCl/ Sodium Chloride (Cardene Inj/NS 500 ml Inj) 500 ml @ 0 mls/hr TITRATE IV ; Start 11/01/16 at 10:26; Stop 11/01/16 at 19:05; Status DC Amlodipine Besylate (Norvasc) 10 mg DAILY PO Last administered on 11/02/16 08: 39; Start 11/02/16 at 09:00 Amlodipine Besylate (Norvasc) 10 mg ONCE ONCE PO Last administered on 12:32; Start 11/01/16 at 11:00; Stop 11/01/16 at 11:01; Status DC Hydralazine HCl (Apresoline Inj) 10 mg Q30M PRN IV PUSH bp>140/80 Last administered on 11/02/16 09:17; Start 11/01/16 at 20:15 Lisinopril (Prinivil) 10 mg DAILY PO ; Start 11/02/16 at 12:00 A/P Assessment and Plan Intracranial bleed -CT scan today showed small subdural hematoma overlying the right sylvian fissure. Trace subdural hemorrhage in the posterior right interhemispheric fissure. -MRI suggest small collection of blood vs meningoma. -NSG consulted recommend f/u in [address] scan. uncontrolled HTN -need to control BP due to bleed. -off Cardene gtt but requiring lots of IV medication. -on amlodipine. will add lisinopril. -see treatment as above. DVT prophylaxis -SCD. chemoprophylaxis contraindicated due to bleed. Dispo: once BP is better controlled with oral medication patient can be d/c home. Discharge Planning Dispo: once BP is controlled and off Cardene gtt can d/c home. Rivka Armas MD Nov 02, 2016 12:51
[2016-11-02] MEDS: LISINOPRIL 10 MG TAB PO SCH (13:03)
--- NOTE | 2016-11-02 18:35 | HHI.NSPN ---
History Interval History 75-year-old gentleman who five days ago and tripped and fell at a gas station over the hose on the concrete ground and struck the left side of his face, hand and shoulder. He denies any loss of consciousness. Subsequently he has had complaints of left wrist pain and left shoulder anterior chest wall pain and left-sided headaches and facial pain. He presented to [place] [facility] yesterday and workup undertaken included CT scan of the head which reveals a 3.5-cm in AP dimension x 1-cm thickness right temporal extra-axial hemorrhage without any significant midline shift. He has also had a subsequent MRI scan which again confirms this hemorrhage with no progression. Initially the radiologist felt that there could be a meningioma but this appears to be more characteristic of a hemorrhage. He was transferred to [facility] facility late last evening. He has been hypertensive and requiring Cardene drip to regulate his hypertension and relates this morning that overall his facial pain and left wrist pain and shoulder and chest wall pain has improved. He is requesting to be discharged home. He denies any double vision or any nausea or vomiting. Followup CT scan of the head obtained at this morning again reveals a stable small right temporal extra-axial hemorrhage. 11/02/16: Headache and left wrist pain improved. Blood pressure controlled on by mouth meds and off Cardene drip. Patient and his requesting discharge home. Exam Results Vital Signs Date Time Temp Pulse Resp B/P Pulse Ox O2 Delivery O2 Flow Rate FiO2 11/02/16 16:00 98.5 82 23 144/64 93 11/02/16 07:00 Nasal Cannula 1.00 97 Intake and Output 11/01/16 11/01/16 11/02/16 08:00 16:00 00:00 Intake Total 2028 ml 1695 ml 480 ml Output Total 925 ml 950 ml 450 ml Balance 1103 ml 745 ml 30 ml Physical Examination HEAD: He has left periorbital and facial ecchymosis. NECK: Supple. CHEST: Clear bilaterally. HEART: Regular rate and rhythm. Normal S1 and S2. ABDOMEN: Soft, nontender. EXTREMITIES: He has some tenderness and ecchymosis of the left wrist with good range of motion. No signs of edema or deformity. NEUROLOGIC: He is awake, alert. He is oriented x 3. Pupils are equal, reactive. Extraocular muscles are intact. Face is symmetric. Tongue is midline. He moves all four extremities with 5/5 strength. Negative Babinski. Speech is fluent. Light touch sensation is intact bilaterally. Lab, Micro, Other Results Last Impressions Head CT 11/01/16 0600 Signed Impressions: Service Date/Time: Tuesday, November 01, 2016 02:54 - CONCLUSION: 1. Stable presumed small subdural hematoma overlying the right sylvian fissure. Trace subdural hemorrhage in the posterior right interhemispheric fissure. James Avila MD Wrist X-Ray 10/31/16 0000 Signed Impressions: Service Date/Time: Monday, October 31, 2016 12:36 - CONCLUSION: Soft tissue without fracture. Francisco Loyola MD FACR Maxillofacial CT 10/31/16 0000 Signed Impressions: Service Date/Time: Monday, October 31, 2016 13:07 - CONCLUSION: 1. No facial fractures. 2. Right sided extra axial hyperdense lesion likely meningioma. 3. Left sided facial soft tissue swelling. Josue Crews MD Brain MRI 10/31/16 0000 Signed Impressions: Service Date/Time: Monday, October 31, 2016 15:24 - CONCLUSION: 1. Small mass as described above on the right that could be an epidural collection of blood or atypical meningioma. 2. Findings have been discussed with Dr. Hickey on today's date. Francisco Loyola MD FACR Laboratory Tests Test 11/02/16 03:35 White Blood Count 8.4 Red Blood Count 4.10 Hemoglobin 13.0 Hematocrit 38.1 Mean Corpuscular Volume 93.0 Mean Corpuscular Hemoglobin 31.7 Mean Corpuscular Hemoglobin 34.1 Concent Red Cell Distribution Width 14.1 Platelet Count 168 Mean Platelet Volume 9.5 Sodium Level 142 Potassium Level 3.5 Chloride Level 109 Carbon Dioxide Level 24.5 Anion Gap 9 Blood Urea Nitrogen 15 Creatinine 0.76 Estimat Glomerular Filtration 100 Rate Random Glucose 136 Calcium Level 8.5 Medical Decision Making Impression and Plan 1. 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 2. Regulated hypertension off Cardene drip. 3. Left wrist sprain injury. 4. Remote history of seizure disorder. Patient is stable for discharge from neurosurgical standpoint. Follow-up in the office in 2 weeks with repeat his CT scan had prior to that visit. Discussed with patient and updated his at bedside and will monitor him closely at home. Wang Toledo MD Nov 02, 2016 18:35
[2016-11-02] MEDS: PHENobarbital 32.4 MG TAB PO SCH (20:09)
[2016-11-03] VITALS: BP 142/58; PULSE 78; RESP 21; TEMP 98.2; O2SAT 92
[2016-11-03 04:00] VITALS: BP 142/65; PULSE 67; RESP 19; TEMP 98.7; O2SAT 93
[2016-11-03] MEDS: CHLORHEXIDINE GLUCONATE 2 % 1 PACK (2 CLOTHS) TOP SCH (04:00)
[2016-11-03 04:47] LABS: HEMATOCRIT 38.8 % (39.0-51.0); MEAN CELL VOLUME 92.9 FL (80.0-100.0); MEAN CORPUSCULAR HEMOGLOBIN 32.5 PG (27.0-34.0); PLATELET COUNT 184 TH/MM3 (150-450); RED BLOOD COUNT 4.18 MIL/MM3 (4.50-5.90); RED CELL DISTRIBUTION WIDTH 14.1 % (11.6-17.2); REVIEW FLAG FINAL; WHITE BLOOD COUNT 8.4 TH/MM3 (4.0-11.0)
[2016-11-03 05:10] LABS: BICARBONATE 22.4 MEQ/L (21.0-32.0); POTASSIUM 3.6 MEQ/L (3.5-5.1)
[2016-11-03] MEDS: INSULIN NovoLIN REGULAR SUPPLEMENTAL SCALE SQ SCH (05:18)
[2016-11-03] MEDS: hydrALAZINE HCL 20 MG/ML VIAL IV PUSH PRN (06:23)
[2016-11-03 08:00] VITALS: BP 156/68; PULSE 70; RESP 32; TEMP 98.2; O2SAT 92
--- NOTE | 2016-11-03 08:15 | HHI.PR ---
Subjective Remarks Follow up hypertension. The patient wants to go home. He denies headache or vision changes. Has left-sided chest pain from a "pulled muscle" that occurred when he fell. No other complaints at this time. Objective Vitals Vital Signs Date Time Temp Pulse Resp B/P Pulse Ox O2 Delivery O2 Flow Rate FiO2 11/03/16 04:00 98.7 67 19 142/65 93 11/03/16 00:00 98.2 78 21 142/58 92 11/02/16 20:35 93 11/02/16 20:00 Room Air 11/02/16 20:00 98.3 72 24 145/103 94 11/02/16 18:00 82 11/02/16 16:00 98.5 82 23 144/64 93 11/02/16 16:00 82 11/02/16 14:00 83 11/02/16 12:00 88 11/02/16 12:00 97.3 88 20 153/79 94 11/02/16 10:00 83 I/O 11/02/16 11/02/16 11/02/16 11/03/16 11/03/16 11/03/16 07:00 15:00 23:00 07:00 15:00 23:00 Intake Total 100 ml 120 ml 240 ml Output Total 150 ml 350 ml 300 ml Balance -50 ml 120 ml -110 ml -300 ml Intake Oral 100 ml 120 ml 240 ml IV Total 0 ml 0 ml Output Urine Total 150 ml 350 ml 300 ml # Voids 3 # Bowel Movements 0 0 0 0 Result Diagram: 11/03/16 0410 11/03/16 0410 Imaging Last Impressions Head CT 11/01/16 0600 Signed Impressions: Service Date/Time: Tuesday, November 01, 2016 02:54 - CONCLUSION: 1. Stable presumed small subdural hematoma overlying the right sylvian fissure. Trace subdural hemorrhage in the posterior right interhemispheric fissure. James Avila MD Wrist X-Ray 10/31/16 0000 Signed Impressions: Service Date/Time: Monday, October 31, 2016 12:36 - CONCLUSION: Soft tissue without fracture. Francisco Loyola MD FACR Maxillofacial CT 10/31/16 0000 Signed Impressions: Service Date/Time: Monday, October 31, 2016 13:07 - CONCLUSION: 1. No facial fractures. 2. Right sided extra axial hyperdense lesion likely meningioma. 3. Left sided facial soft tissue swelling. Josue Crews MD Brain MRI 10/31/16 0000 Signed Impressions: Service Date/Time: Monday, October 31, 2016 15:24 - CONCLUSION: 1. Small mass as described above on the right that could be an epidural collection of blood or atypical meningioma. 2. Findings have been discussed with Dr. Hickey on today's date. Francisco Loyola MD FACR Objective Remarks General: No acute distress. Heart: Regular rate and rhythm. No murmur. Lungs: Clear to auscultation bilaterally. No wheezes, rales, or rhonchi. Breathing is nonlabored. Abdomen: Soft, nontender, nondistended. Extremities: No lower extremity edema. SCDs. Psych: Alert and oriented. Procedures None Urinary Catheter: No Vascular Central Line Catheter: No A/P Problem List: (1) Intracranial hemorrhage ICD Code: I62.9 Status: Acute (2) Hypertension ICD Code: I10 Status: Chronic Assessment and Plan 1. Intracranial hemorrhage: Appreciate neurosurgery recommendations. No surgical intervention at this time. Follow-up CT in 2 weeks. Cleared for discharge by neurosurgery. 2. Hypertension, poorly controlled: Now off Cardene drip. Has intermittently required IV antihypertensive medications. Continue amlodipine, lisinopril. Blood pressure is slightly elevated this morning at 150/68, but patient has not received his morning blood pressure medications. 3. DVT prophylaxis: SCDs. Avoid chemical prophylaxis secondary to intracranial hemorrhage. Discharge Planning Discharge home today in stable condition. The patient was strongly advised to find a primary care physician locally. Len Sanders MD Nov 03, 2016 08:15
[2016-11-03 08:16] VITALS: O2SAT 96
--- NOTE | 2016-11-03 08:23 | HHI.DCPOC ---
Discharge Care Plan Diagnosis: (1) Intracranial hemorrhage (2) Hypertension Goals to Promote Your Health * To prevent worsening of your condition and complications * To maintain your health at the optimal level Directions to Meet Your Goals Take your medications as prescribed Follow your dietary instruction Follow activity as directed Keep your appointments as scheduled Take your immunizations and boosters as scheduled If your symptoms worsen call your PCP, if no PCP go to Urgent Care Center or Emergency Room Smoking is Dangerous to Your Health. Avoid second hand smoke Call the 24-hour hour crisis hotline for domestic abuse at Len Sanders MD Nov 03, 2016 08:23
[2016-11-03] MEDS ORDERED: LISI10TA3 PO (08:25)
[2016-11-03] MEDS: PANTOPRAZOLE SODIUM 40 MG VIAL IV SCH (08:28)
[2016-11-03] MEDS: LISINOPRIL 10 MG TAB PO SCH (08:29)
--- NOTE | 2016-11-03 08:29 | HHI.DS ---
Discharge Summary Admission Date Oct 31, 2016 at 17:15 Discharge Date: Nov 03, 2016 Admitting Diagnosis intracranial hemorrhage (1) Intracranial hemorrhage ICD Code: I62.9 (2) Hypertension ICD Code: I10 Procedures None Brief History - From Admission 75-year-old male who presents after having had a mechanical fall in a gas station 4 days ago hitting his head and face and injuring his left wrist. He complains off persistent moderate severity pain in his left face, constant, worse with opening his jaw, associated with a significant amount of bruising around his left eye and his left lip. CT of the head and MRI revealed small atypical meningioma. He's been admitted to [place] ICU with a neurosurgical consultation. CBC/BMP: 11/03/16 0410 11/03/16 0410 Significant Findings Laboratory Tests Test 10/31/16 11/01/16 11/02/16 11/03/16 14:03 04:09 03:35 04:10 Red Blood Count 4.38 MIL/MM3 4.16 MIL/MM3 4.10 MIL/MM3 4.18 MIL/MM3 (4.50-5.90) (4.50-5.90) (4.50-5.90) (4.50-5.90) Monocytes (%) (Auto) 8.6 % (0.0-8.0) Eosinophils (%) (Auto) 4.3 % (0.0-4.0) Estimat Glomerular Filtration 80 ML/MIN (>89) 88 ML/MIN (>89) Rate Hematocrit 38.6 % 38.1 % 38.8 % (39.0-51.0) (39.0-51.0) (39.0-51.0) Potassium Level 3.3 MEQ/L (3.5-5.1) Random Glucose 112 MG/DL 136 MG/DL 120 MG/DL (74-106) (74-106) (74-106) Calcium Level 8.3 MG/DL (8.5-10.1) Chloride Level 109 MEQ/L 109 MEQ/L (98-107) (98-107) Imaging Last Impressions Head CT 2/28/17 0600 Signed Impressions: Service Date/Time: Tuesday, November 01, 2016 02:54 - CONCLUSION: 1. Stable presumed small subdural hematoma overlying the right sylvian fissure. Trace subdural hemorrhage in the posterior right interhemispheric fissure. James Avila MD Wrist X-Ray 10/31/16 0000 Signed Impressions: Service Date/Time: Monday, October 31, 2016 12:36 - CONCLUSION: Soft tissue without fracture. Francisco Loyola MD FACR Maxillofacial CT 10/31/16 0000 Signed Impressions: Service Date/Time: Monday, October 31, 2016 13:07 - CONCLUSION: 1. No facial fractures. 2. Right sided extra axial hyperdense lesion likely meningioma. 3. Left sided facial soft tissue swelling. Josue Crews MD Brain MRI 10/31/16 0000 Signed Impressions: Service Date/Time: Monday, October 31, 2016 15:24 - CONCLUSION: 1. Small mass as described above on the right that could be an epidural collection of blood or atypical meningioma. 2. Findings have been discussed with Dr. Hickey on today's date. Francisco Loyola MD FACR PE at Discharge General: No acute distress. Heart: Regular rate and rhythm. No murmur. Lungs: Clear to auscultation bilaterally. No wheezes, rales, or rhonchi. Breathing is nonlabored. Abdomen: Soft, nontender, nondistended. Extremities: No lower extremity edema. SCDs. Psych: Alert and oriented. Hospital Course The patient was admitted to the intensive care unit. He was continued on his home dose of phenobarbital for seizure disorder. Neurosurgery was consulted for evaluation of meningioma versus intracranial hemorrhage. Blood pressure was poorly controlled initially and the patient was placed on Cardene drip. He was transitioned to oral antihypertensive medications. Blood pressure control improved. He was cleared for discharge by neurosurgery with instructions to follow-up in [address] weeks for repeat head CT. Pt Condition on Discharge: Stable Discharge Disposition: Discharge Home Discharge Time: > 30 minutes Discharge Instructions DIET: Follow Instructions for: Heart Healthy Diet Activities you can perform: Regular-No Restrictions Follow up Referrals: Appointment for Follow Up - [address] head w/o contrast prior to visit New Orders: CT Brain W/O Contrast - 2 Weeks New Medications: Hydrocodone-Acetaminophen ([place]) 5-325 mg Tab 1-2 TAB PO Q6H PRN PAIN #20 Ref 0 TAB Lisinopril (Lisinopril) 10 Mg Tab 10 MG PO DAILY #30 Ref 0 TAB Amlodipine (Norvasc) 10 Mg Tab 10 MG PO DAILY hypertension #30 Ref 0 TAB Continued Medications: Phenobarbital (Phenobarbital) 64.8 Mg Tab 64.8 MG PO HS Control Seizures #30 Ref 0 TAB Len Sanders MD Nov 03, 2016 08:28
[2016-11-03] MEDS ORDERED: AMLO10TA2 PO (08:32)
[2016-11-21] MEDS ORDERED: LISI10TA3 PO (15:37)
[2016-11-21] MEDS ORDERED: AMLO10TA2 PO (15:37)
[2016-12-27] MEDS ORDERED: LISI10TA3 PO (18:40)
[2016-12-27] MEDS ORDERED: AMLO10TA2 PO (18:40)
== END 2016-11-03 11:45 | disposition home or self-care (01) | DRG 84 ==
LOC: PHED 11:56 → PHEDA 17:15 → N03A 19:22
PROVIDERS: ADMIT Family Medicine; ATTEND Family Medicine
DX: S06.5X9A Traumatic subdural hemorrhage with loss of consciousness of unspecified duration, initial encounter (principal); G40.909 Epilepsy, unspecified, not intractable, without status epilepticus; I10 Essential (primary) hypertension; D32.9 Benign neoplasm of meninges, unspecified; E87.6 Hypokalemia; Z96.652 Presence of left artificial knee joint; W01.0XXA Fall on same level from slipping, tripping and stumbling without subsequent striking against object, initial encounter; Y92.524 Gas station as the place of occurrence of the external cause
CPT/HCPCS: 70450; 70486; 70553; 73110; 80048; 82948; 85025; 85027; 85610; 85730; 87641; 94150; 94640; 94667; 94668; A9579; C9113; J0360; J7030; J7050